=== PATIENT | male | born 1950 | race Caucasian/White ===

== ENCOUNTER 2019-10-29 09:52 | Day surgery (SDC) | payer MEDICARE, OTHER ==
[~2019-10-29 09:52] MED LIST: Acetaminophen 325 MG Tab PO PRN; Ondansetron 4 MG/2 ML SDV IVPUSH PRN
[2019-10-29] MEDS ORDERED: Midazolam 1 MG/ML 2 ML SDV IV ONE (09:53)
[2019-10-29] MEDS ORDERED: Sodium Chloride 0.9% 10 ML Syringe IV ONE (09:53)
[2019-10-29] MEDS ORDERED: Dexamethasone 4 MG/ML SDV IV ONE (09:53)
[2019-10-29] MEDS: Sodium Chloride 0.9% 10 ML Syringe FLUSH PRN (10:15)
[2019-10-29] MEDS: Proparacaine 0.5% Ophth Soln 15 ML Bottle EYERT ONE (10:16)
[2019-10-29] MEDS: Povidone-Iodine 5% Sterile Ophth Soln 30 ML Bottle EYERT ONE ×2 (10:17→10:50)
[2019-10-29] MEDS: Moxifloxacin 0.5% Ophth Soln 3 ML Bottle EYERT ONE (10:18)
[2019-10-29] MEDS: Phenylephrine 10% Ophth Soln 5 ML Bot EYERT ONE ×2 (10:19→10:52)
[2019-10-29] MEDS: Timolol Maleate 0.5% Ophth Soln 5 ML Bottle EYERT ONE (10:19)
[2019-10-29] MEDS: Cataract Ophth Solution EYERT ONE (10:20)
[2019-10-29] MEDS: Phenylephrine 10% Ophth Soln 5 ML Bot EYERT PRN (10:33)
[2019-10-29] MEDS: Tetracaine HCl/PF 0.5% 4 ML Bottle EYERT ONE (10:50)
[2019-10-29] MEDS: Diclofenac Sodium 0.1% Ophth Soln 5 ML Bottle EYERT ONE (10:51)
[2019-10-29] MEDS: Lidocaine 1% 30 ML SDV ONE (10:51)
[2019-10-29] MEDS: Apraclonidine 0.5% Ophth Soln 5 ML Bot EYERT ONE (10:51)
[2019-10-29] MEDS: Balanced Salt Solution Ophth Irrig 500 ML Bottle IOCULAR ONE (10:52)
[2019-10-29] MEDS: Vancomycin 500 MG SDV EYERT ONE (10:52)
[2019-10-29] MEDS: Chondroitin Sulfate/Hyaluronate Sodium Ophth Inj 0.75 ML Syringe EYERT ONE (10:52)
[2019-10-29 14:00] VITALS: BP 120/70; PULSE 66
--- NOTE | 2019-10-30 09:15 | OR ---
DATE: 10/29/2019 PREOPERATIVE DIAGNOSIS: Visually significant mixed cataract, right eye. POSTOPERATIVE DIAGNOSIS: Visually significant mixed cataract, right eye. PROCEDURE: Extracapsular cataract extraction with intraocular lens implant, right eye. ANESTHESIA: Topical/local MAC. COMPLICATIONS: None. INDICATION: Mr. Murphy was seen in the clinic with complaints of blurred vision. The examination revealed visually significant cataract. I explained options, offered cataract surgery, and I explained risks including the potential for infection, retinal detachment, loss of vision, need for additional surgery, amongst others. We discussed implant options. He has requested a monofocal implant. He is comfortable wearing spectacle correction following surgery if necessary. OPERATIVE DESCRIPTION: After informed consent was obtained and the risks, benefits, and alternatives were explained, the patient was brought to the operative suite and topical anesthesia was administered. The patient was then prepped and draped in the sterile fashion and attention was placed on the right eye. A sterile lid speculum was placed into the right eye to allow operative exposure. A full-thickness paracentesis was made in the temporal portion of the operative eye. Preservative-free lidocaine 0.1 mL was injected into the anterior chamber followed by viscoelastic. A full-thickness corneal incision was then made into the anterior chamber. A bent needle cystotome was used to create a small linda in the anterior capsule. The capsulorrhexis forceps was then used to create a 360-degree curvilinear capsulorrhexis. The nucleus was then removed using a phacoemulsification handpiece and the remaining cortical material was then removed with irrigation and aspiration handpiece. Following removal of the cortical material, the capsular bag was then inspected and noted to be free of any holes or tears. Viscoelastic was then injected into the capsular bag and the intraocular lens was inserted into the capsular bag. The viscoelastic material was then removed from both the anterior and posterior chambers and from behind the IOL. The lens and capsular bag were then reinspected. The IOL was well centered and the capsular bag intact. The wound and paracentesis sites were inspected and hydrated with balanced saline solution. Both were found to be self- sealing. The intraocular pressure was assessed digitally and found to be within normal range. A good red reflex was noted at the completion of the procedure. No complications occurred during the operation. At the completion of the procedure, Maxitrol, Voltaren, and Iopidine drops were placed into the operative eye. A sterile eye shield was placed over the operative eye and the patient was transported to the postoperative recovery area having tolerated the procedure well. Postoperative instructions were given along with a postoperative appointment. The patient was advised to call with any questions or concerns. [facility] /[id number]
== END 2019-10-29 12:03 | disposition home or self-care (01) ==
LOC: DL.SDS 09:52
PROVIDERS: ATTEND Ophthalmology
DX: H26.9 Unspecified cataract (principal); E78.5 Hyperlipidemia, unspecified; I10 Essential (primary) hypertension; Z87.891 Personal history of nicotine dependence; Z79.82 Long term (current) use of aspirin; Z79.899 Other long term (current) drug therapy
CPT/HCPCS: 00142; J1100; J2001; J2250; J3370; V2632

== ENCOUNTER 2025-04-07 14:09 | Emergency (ER) | payer MEDICARE, OTHER ==
[2025-04-07 14:45] LABS: BASOPHILS PERCENT AUTO 0.3 % (0.0-1.0); EOSINOPHILS PERCENT AUTO 2.4 % (1.0-3.0); HEMATOCRIT 42.7 % (40.0-54.0); HEMOGLOBIN 13.9 g/dL (14.0-18.0); LYMPHOCYTES PERCENT AUTO 11.7 % (20.5-50.1); MEAN CORPUSCULAR HGB CONC 32.6 g/dL (33.0-35.0); MONOCYTES PERCENT AUTO 10.1 % (2-8); NEUTROPHILS PERCENT AUTO 75.5 % (42.2-75.2); PLATELET COUNT,PLT 150 10^3/uL (150-450); RED BLOOD CELL COUNT 4.64 10^6/uL (4.6-6.2); WHITE BLOOD CELL COUNT,WBC 10.9 10^3/uL (5.0-10.0)
[2025-04-07 14:59] LABS: CALCIUM 9.9 mg/dL (8.5-10.1); CREATININE 1.24 mg/dL (0.70-1.30); EST CRCL DRUG DOSING (CG) 43.4 mL/min
[2025-04-07 15:14] LABS: INR 0.9 (0.9-1.2); PROTHROMBIN TIME 9.4 SEC (9.0-12.0); PTT,PARTIAL THROMBOPLSTIN TIME 28.7 SEC (22.0-34.0)
[2025-04-07] MEDS: Iopamidol 755 Mg/ML 100 ML Bottle IVPUSH ONE (16:04)
[2025-04-07 16:41] VITALS: PULSE 89
[2025-04-07] MEDS ORDERED: Heparin Sodium/0.45% NaCl 25,000 UNITS/500 ML BAG IV SCH (17:00)
[2025-04-07 19:35] VITALS: BP 103/71
[2025-04-07] MEDS: Heparin Sodium 5,000 Units/ML Vial IVPUSH ONE (19:38)
[2025-04-07] MEDS: Heparin Sodium/0.45% NaCl 25,000 UNITS/500 ML BAG IV SCH (19:40)
[2025-04-07] MEDS: Heparin Sodium 5,000 Units/ML Vial ONE (19:41)
== END 2025-04-07 23:29 ==
LOC: DL.ED 14:09
DX: I80.202 Phlebitis and thrombophlebitis of unspecified deep vessels of left lower extremity (principal); I10 Essential (primary) hypertension; E78.00 Pure hypercholesterolemia, unspecified; Z79.82 Long term (current) use of aspirin; Z79.899 Other long term (current) drug therapy; G30.9 Alzheimer's disease, unspecified; F02.80 Dementia in other diseases classified elsewhere, unspecified severity, without behavioral disturbance, psychotic disturbance, mood disturbance, and anxiety
CPT/HCPCS: 36415; 70450; 73706; 80048; 83605; 85025; 85610; 85730; 93971; 96365; 96366; 99285; J1644; Q9967

== ENCOUNTER 2025-04-16 10:26 | Emergency (ER) | payer MEDICARE, MEDICAID ==
[2025-04-16 10:34] VITALS: BP 98/68; PULSE 81
== END 2025-04-16 10:51 | disposition home or self-care (01) ==
LOC: DL.ED 10:26
DX: L03.116 Cellulitis of left lower limb (principal); I10 Essential (primary) hypertension; I25.2 Old myocardial infarction; E78.00 Pure hypercholesterolemia, unspecified; Z79.82 Long term (current) use of aspirin; Z79.899 Other long term (current) drug therapy
CPT/HCPCS: 99283